=== PATIENT | female | born 1995 | race Caucasian/White ===

== ENCOUNTER 2019-04-14 06:35 | Day surgery (SDC) | payer MEDICAID ==
[~2019-04-14] VITALS: Ht 165.1 cm; Wt 68.0 kg
[2019-04-14] MEDS ORDERED: PROPOFOL 200MG/ 20ML VIAL (DIPRIVAN) IV ONE (08:20)
[2019-04-14] MEDS ORDERED: NS IRRIG SOLN 1000 ML IR ONE (08:20)
[2019-04-14] MEDS ORDERED: DEXAMETHASONE SOD PHOSPHATE 4 MG/ML VIAL IVP ONE (08:20)
[2019-04-14] MEDS ORDERED: ONDANSETRON HCL 4 MG/2 ML VIAL IVP ONE (08:20)
[2019-04-14] MEDS ORDERED: SILVER NITRATE APPLICATOR 1 STICK STICK..EA. TP ONE (08:20)
[2019-04-14] MEDS ORDERED: SEVOFLURANE 15 MIN GAS INH ONE (08:20)
[2019-04-14] MEDS ORDERED: LR 1,000 ML IV.SOLN IV ONE (08:20)
[2019-04-14] MEDS ORDERED: WATER FOR IRRIGATION,STERILE 1,000 ML IRRIG.SOLN IR ONE (08:20)
[2019-04-14] MEDS ORDERED: MIDAZOLAM HCL 5 MG/5 ML VIAL IVP ONE (08:20)
[2019-04-14] MEDS ORDERED: OXYMETAZOLINE HCL 0.05% NASAL SPRAY NS ONE (08:20)
[2019-04-14] MEDS ORDERED: fentaNYL CITRATE/PF 100 MCG/2 ML AMP IVP ONE (08:20)
[2019-04-14] MEDS ORDERED: MUPIROCIN 2% TOPICAL OINTMENT 22 GM TP ONE (08:20)
[2019-04-14] MEDS ORDERED: LIDOCAINE/EPI 1% 1:100000 20 ML VIAL INJ ONE (08:20)
[2019-04-14] MEDS ORDERED: LR 1,000 ML IV SCH (09:06)
[2019-04-14] MEDS ORDERED: MEPERIDINE HCL/PF 50 MG/ML AMP IVP PRN ×2 (09:15)
[2019-04-14] MEDS ORDERED: MEPERIDINE HCL/PF 25 MG/ML DISP.SYRIN IVP PRN (09:15)
[2019-04-14] MEDS ORDERED: METOCLOPRAMIDE HCL 10 MG/2 ML VIAL IVP PRN (09:15)
[2019-04-14] MEDS ORDERED: MEPERIDINE HCL/PF 25 MG/ML DISP.SYRIN ONE (10:03)
[2019-04-14 11:39] VITALS: BP_SYST 119
== END 2019-04-14 11:30 | disposition home or self-care (01) ==
LOC: SMU 06:35 → SDS 06:35 → EDSEX 08:00 → SDS 11:30
PROVIDERS: ATTEND Otolaryngology
DX: L98.0 Pyogenic granuloma (principal); N92.0 Excessive and frequent menstruation with regular cycle; F12.10 Cannabis abuse, uncomplicated
CPT/HCPCS: 30117; 88305; 88331; J1100; J2175; J2250; J2405; J2704; J3010; J7120